=== PATIENT | male | born 1985 | race Caucasian/White ===

== ENCOUNTER 2016-11-28 15:31 | Emergency (ER) | payer SELFPAY ==
[~2016-11-28] VITALS: Ht 188 cm; Wt 80.0 kg
[~2016-11-28 15:31] MED LIST: Z.0.NO CURRENT MEDS
[2016-11-28 15:40] VITALS: BP 143/91; PULSE 84; RESP 24; TEMP 98.7; O2SAT 95
[2016-11-28] MEDS ORDERED: TETANUS/DIPHTHERIA TOXOID ADULT 0.5 ML VIAL IM ONE (16:00)
[2016-11-28] MEDS ORDERED: LIDOCAINE HCL 2% 20 ML VIAL INFIL ONE (16:00)
[2016-11-28] MEDS ORDERED: AMOXICILLIN/CLAVULANATE K 875 MG TAB PO ONE (16:00)
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
[2016-11-28] MEDS ORDERED: TRAM50TA PO (16:59)
[2016-11-28] MEDS ORDERED: IBUP800T23 PO (17:00)
[2016-11-28] MEDS ORDERED: AUGM875T3 PO (17:00)
== END 2016-11-28 18:00 | disposition home or self-care (01) ==
LOC: NEPD 15:31
DX: S01.01XA Laceration without foreign body of scalp, initial encounter (principal); S01.511A Laceration without foreign body of lip, initial encounter; S03.2XXA Dislocation of tooth, initial encounter; S02.5XXA Fracture of tooth (traumatic), initial encounter for closed fracture; F17.210 Nicotine dependence, cigarettes, uncomplicated; V18.9XXA Unspecified pedal cyclist injured in noncollision transport accident in traffic accident, initial encounter; Z23 Encounter for immunization; Z79.899 Other long term (current) drug therapy
CPT/HCPCS: 12013; 90471; 90714